=== PATIENT | male | born 1980 ===

== ENCOUNTER 2017-03-12 08:45 | Emergency (ER) | payer SELFPAY ==
[2017-03-12 09:03] VITALS: BMI 31.8
[2017-03-12 09:07] VITALS: BP 122/72; PULSE 75; RESP 16; TEMP 97; O2SAT 99
[2017-03-12 09:45] LABS: BASO % 0.3 % (0.0-2.0); EOS # 0.2 K/uL (0.0-0.7); EOS % 2.8 % (0.0-4.0); HEMATOCRIT 42.6 % (35.0-51.0); LYMPH # 1.9 K/uL (1.0-4.3); LYMPH % 36.3 % (20.0-40.0); MEAN CORPUSCULAR HEMOGLOBIN 29.9 pg (27.0-31.0); MEAN PLATELET VOLUME 8.5 fl (7.2-11.7); MONO # 0.5 K/uL (0.0-0.8); MONO % 9.6 % (0.0-10.0); NEUT # 2.7 K/uL (1.8-7.0); NRBC % 0.1 % (0.0-0.0); RED CELL DISTRIBUTION WIDTH 13.2 % (11.5-14.5); WHITE BLOOD COUNT 5.4 K/uL (4.8-10.8)
[2017-03-12 09:55] LABS: ALB/GLOB RATIO 1.6 (1.0-2.1); ALKALINE PHOSPHATASE 60 U/L (38-126); ALT/SGPT 43 U/L (21-72); AST/SGOT 29 U/L (17-59); BILIRUBIN,TOTAL 0.7 mg/dl (0.2-1.3); BLOOD UREA NITROGEN 10 mg/dl (9-20); CALCIUM 9.2 mg/dL (8.4-10.2); CARBON DIOXIDE 26 mmol/L (22-30); CHLORIDE 109 mmol/L (98-107); GFR AFRICAN-AMERICAN > 60; GLUCOSE,RANDOM 102 mg/dL (75-110); LIPASE 34 U/L (23-300); POTASSIUM 4.3 MMOL/L (3.6-5.0); SODIUM 144 mmol/l (132-148)
--- NOTE | 2017-03-12 11:30 | US ---
HISTORY: RUQ pain COMPARISON: None available. TECHNIQUE: Sonographic evaluation of the abdomen. FINDINGS: Examination limited by bowel gas. LIVER: Measures 14.9 cm in sagittal dimension. The left hepatic lobe is obscured by bowel gas. Echogenic liver may be seen in setting of hepatic parenchymal disease or fatty infiltration. Probable focal fatty sparing adjacent to the gallbladder spanning approximately 1.5 x 1.7 x 1.4 cm. The main portal vein appears patent with normal directional flow. No intrahepatic bile duct dilatation. GALLBLADDER: No gallstones. No gallbladder wall thickening. Negative sonographic Alonso's sign as assessed by the licensing manager. COMMON BILE DUCT: Measures 3 mm. PANCREAS: Not well visualized. RIGHT KIDNEY: Measures 11.0 x 5.7 x 4.9cm. No obstructing calculus or hydronephrosis identified. LEFT KIDNEY: Measures 12.0 x 5.3 x 6.0cm. No obstructing calculus or hydronephrosis identified. SPLEEN: Measures approximately 10.1 cm. AORTA: Limited views appear grossly unremarkable. IVC: Not well-visualized. OTHER FINDINGS: None. IMPRESSION: Limited study. Echogenic liver may be seen in setting of hepatic parenchymal disease or fatty infiltration. Probable focal fatty sparing adjacent to the gallbladder spanning approximately 1.5 x 1.7 x 1.4 cm.
[2017-03-12] MEDS ORDERED: Sodium Chloride 0.9% 1,000 ML IV STA (11:43)
--- NOTE | 2017-03-12 13:51 | ED PDOC ---
HPI: Abdomen Time Seen by Provider: 03/12/17 08:59 Chief Complaint (Nursing): Abdominal Pain Chief Complaint (Provider): Abdominal Pain History Per: Barrel Burner (#[id number] Yuan) History/Exam Limitations: language barrier Onset/Duration Of Symptoms: Days (x3-4 weeks) Current Symptoms Are (Timing): Still Present Additional Complaint(s): Lázaro Shanks is a 36 year old male who presents to the emergency department with a complaint of intermittent "burning and occasionally sharp" upper abdominal pain radiating to chest ongoing for 3-4 weeks. Denied vomiting, diarrhea, cough or shortness of breath. PMD: none provided Past Medical History Reviewed: Historical Data, Nursing Documentation, Vital Signs Vital Signs: Last Vital Signs Temp 97.0 F L 03/12/17 09:03 Pulse 75 03/12/17 09:03 Resp 16 03/12/17 09:03 BP 122/72 03/12/17 09:03 Pulse Ox 99 03/12/17 14:30 - Medical History PMH: No Chronic Diseases - Surgical History Surgical History: No Surg Hx - Family History Family History: States: Unknown Family Hx - Social History Current smoker - smoking cessation education provided: No Ex-Smoker (has not smoked in the last 12 months): No Alcohol: Occasional Drugs: Denies - Home Medications Home Medications: Ambulatory Orders Medication Instructions Recorded Ranitidine HCl [Zantac] 150 mg PO BID #20 tablet 03/12/17 - Allergies Allergies/Adverse Reactions: Allergies Allergy/AdvReac Type Severity Reaction Status Date / Time No Known Allergies Allergy Verified 05/16/16 17:45 Review of Systems ROS Statement: Except As Marked, All Systems Reviewed And Found Negative Constitutional: Negative for: Fever, Chills Cardiovascular: Positive for: Chest Pain Respiratory: Negative for: Cough, Shortness of Breath Gastrointestinal: Positive for: Abdominal Pain (upper area). Negative for: Vomiting, Diarrhea Physical Exam - Reviewed Nursing Documentation Reviewed: Yes Vital Signs Reviewed: Yes - Physical Exam Appears: Positive for: Well, Non-toxic, No Acute Distress Head Exam: Positive for: ATRAUMATIC, NORMAL INSPECTION, NORMOCEPHALIC Skin: Positive for: Normal Color Eye Exam: Positive for: Normal appearance, EOMI, PERRL. Negative for: Nystagmus ENT: Positive for: Normal ENT Inspection Neck: Positive for: Normal, Painless ROM, Supple. Negative for: Limited ROM Cardiovascular/Chest: Positive for: Regular Rate, Rhythm. Negative for: Chest Non Tender Respiratory: Positive for: Normal Breath Sounds, Accessory Muscle Use. Negative for: Decreased Breath Sounds, Crackles, Rales, Rhonchi, Wheezing, Respiratory Distress Gastrointestinal/Abdominal: Positive for: Bowel Sounds, Soft, Tenderness (mild epigastric; RUQ). Negative for: Normal Exam, Mass Back: Positive for: Normal Inspection. Negative for: L CVA Tenderness, R CVA Tenderness Extremity: Positive for: Normal ROM. Negative for: Tenderness, Pedal Edema, Calf Tenderness, Deformity Neurologic/Psych: Positive for: Alert, Oriented - Laboratory Results Result Diagrams: 03/12/17 09:30 03/12/17 09:30 - ECG O2 Sat by Pulse Oximetry: 99 (RA) Pulse Ox Interpretation: Normal Medical Decision Making Medical Decision Making: Initial Impression: Chest pain; abdominal pain Initial Plan: * EKG * CXR * CMP * Lipase * Troponin I * CBC * US ABD * Bentyl 10mg PO * Pepcid 20mg IV * Toradol 30mg IV * NS 1,000ml IV per 1,000mls/hr Time: 923 --EKG: NSR at [address] changes. Time: 1128 --US ABD FINDINGS: Examination limited by bowel gas. LIVER: Measures 14.9 cm in sagittal dimension. The left hepatic lobe is obscured by bowel gas. Echogenic liver may be seen in setting of hepatic parenchymal disease or fatty infiltration. Probable focal fatty sparing adjacent to the gallbladder spanning approximately 1.5 x 1.7 x 1.4 cm. The main portal vein appears patent with normal directional flow. No intrahepatic bile duct dilatation. GALLBLADDER: No gallstones. No gallbladder wall thickening. Negative sonographic Alonso's sign as assessed by the second watch sergeant. COMMON BILE DUCT: Measures 3 mm. PANCREAS: Not well visualized. RIGHT KIDNEY: Measures 11.0 x 5.7 x 4.9cm. No obstructing calculus or hydronephrosis identified. LEFT KIDNEY: Measures 12.0 x 5.3 x 6.0cm. No obstructing calculus or hydronephrosis identified. SPLEEN: Measures approximately 10.1 cm. AORTA: Limited views appear grossly unremarkable. IVC: Not well-visualized. OTHER FINDINGS: None. IMPRESSION: Limited study. Echogenic liver may be seen in setting of hepatic parenchymal disease or fatty infiltration. Probable focal fatty sparing adjacent to the gallbladder spanning approximately 1.5 x 1.7 x 1.4 cm. Scribe Attestation: Documented by Erinn Weinberg, acting as a scribe for Miguel Bain III, DO. Provider Scribe Attestation: All medical record entries made by the Scribe were at my direction and personally dictated by me. I have reviewed the chart and agree that the record accurately reflects my personal performance of the history, physical exam, medical decision making, and the department course for this patient. I have also personally directed, reviewed, and agree with the discharge instructions and disposition. Disposition - Clinical Impression Clinical Impression: Abdominal pain - Patient ED Disposition Is Patient to be Admitted: No Counseled Patient/Family Regarding: Studies Performed, Diagnosis - Disposition Referrals: [facility] [Outside] Robby WALTON,MD Arielle [Medical Doctor] - Disposition: Rehab Facility/Unit Condition: STABLE Additional Instructions: Return to ER for any worse or new symptoms. Prescriptions: Ranitidine HCl [Zantac] 150 mg PO BID #20 tablet Instructions: Acute Abdominal Pain (ED) Forms: [employer] (Vietnamese) Print Language: SETSWANA
--- NOTE | 2017-03-12 14:47 | RAD ---
HISTORY: CP COMPARISON: None available. TECHNIQUE: Chest, one view. FINDINGS: Examination limited by habitus. LUNGS: No focal consolidation. Please note that chest x-ray has limited sensitivity for the detection of pulmonary masses. PLEURA: No significant pleural effusion identified. No definite pneumothorax . CARDIOVASCULAR: Heart size appears within normal limits. OSSEOUS STRUCTURES: No acute osseous abnormality identified. VISUALIZED UPPER ABDOMEN: Unremarkable. OTHER FINDINGS: None. IMPRESSION: No focal consolidation, significant pleural effusion, or definite pneumothorax identified.
--- NOTE | 2017-03-13 13:26 | CARD ---
APPROVED REPORT EKG Measurement Heart [id number] SD [id number] [id number] <Conclusion> Normal sinus rhythm Normal ECG
== END 2017-03-12 14:35 | disposition home or self-care (01) ==
LOC: H.ER 08:45
DX: R10.13 Epigastric pain (principal); R07.89 Other chest pain
CPT/HCPCS: 71010; 76700; 80053; 83690; 84484; 85025; 93005; 99282; J1885; J7040

== ENCOUNTER 2018-04-02 20:27 | Emergency (ER) | payer SELFPAY ==
[2018-04-02 20:27] VITALS: BMI 31.8
[2018-04-02 20:55] VITALS: BP 132/72; PULSE 67; RESP 18; TEMP 98.4; O2SAT 100
--- NOTE | 2018-04-02 21:07 | ED PDOC ---
Lower Extremity Pain/Injury Chief Complaint (Provider): Bilateral knee pain History Per: Patient History/Exam Limitations: no limitations Onset/Duration Of Symptoms: Days (3x months. worse for the past 2x weeks.) Current Symptoms Are (Timing): Still Present Severity: Moderate Additional Complaint(s): 37 year old male presents to the ED with complaints of bilateral knee pain that started 2 years ago but has been worse over the past 3 months. Patient denies any trauma or injury. Patient reports he last took advil 2x weeks ago with no relief. He was seen at this ED in April 2016 for same complaint but never followed up. PMD: None <Jocelyne Farooq - Last Filed: 04/02/18 21:42> <Farhana German - Last Filed: 04/03/18 23:56> Time Seen by Provider: 04/02/18 21:01 Chief Complaint (Nursing): Lower Extremity Problem/Injury Supervising Attending Note - Attestation: I have personally seen and examined this patient.: No I have reviewed all pertinent clinical information, including history, physical exam and plan: Yes <Farhana German - Last Filed: 04/03/18 23:56> Past Medical History Reviewed: Historical Data, Nursing Documentation, Vital Signs Vital Signs: Last Vital Signs Temp 98.4 F 04/02/18 20:53 Pulse 67 04/02/18 20:53 Resp 18 04/02/18 20:53 BP 132/72 04/02/18 20:53 Pulse Ox 100 04/02/18 20:53 - Medical History PMH: Chronic Pain (bilateral knees) - Surgical History Surgical History: No Surg Hx - Family History Family History: States: No Known Family Hx - Living Arrangements Living Arrangements: With Family - Social History Current smoker - smoking cessation education provided: No Alcohol: Social Drugs: Denies <Jocelyne Farooq - Last Filed: 04/02/18 21:42> Vital Signs: Last Vital Signs Temp 98.4 F 04/02/18 20:53 Pulse 67 04/02/18 20:53 Resp 18 04/02/18 20:53 BP 132/72 04/02/18 20:53 Pulse Ox 100 04/02/18 21:47 <Farhana German - Last Filed: 04/03/18 23:56> - Home Medications Home Medications: Ambulatory Orders Medication Instructions Recorded Ranitidine HCl [Zantac] 150 mg PO BID #20 tablet 03/12/17 Ibuprofen [Motrin Tab] 800 mg PO Q8 PRN #30 tab 04/02/18 - Allergies Allergies/Adverse Reactions: Allergies Allergy/AdvReac Type Severity Reaction Status Date / Time No Known Allergies Allergy Verified 04/02/18 20:42 Wells Criteria for PE - Wells Criteria for Pulmonary Embolism Clinical Signs and Symptoms of DVT: No P.E is #1 Diagnosis, or Equally Likely: No Heart Rate >100: No Immobilization at least 3 days;Surgery previous 4 weeks: No Previous, objectively diagnosed PE or DVT: No Hemoptysis: No Malignancy w/treatment within 6 months, or palliative: No Total Score: 0 <Jocelyne Farooq - Last Filed: 04/02/18 21:42> Review of Systems ROS Statement: Except As Marked, All Systems Reviewed And Found Negative Musculoskeletal: Positive for: Other (bilateral knee pain, chronic) <Jocelyne Farooq - Last Filed: 04/02/18 21:42> Physical Exam - Reviewed Nursing Documentation Reviewed: Yes Vital Signs Reviewed: Yes - Physical Exam Appears: Positive for: Well, Non-toxic, No Acute Distress Head Exam: Positive for: ATRAUMATIC, NORMOCEPHALIC Skin: Positive for: Normal Color. Negative for: Rash Eye Exam: Positive for: Normal appearance Extremity: Positive for: Other (full ROM of bilateral knees with pain, no swelling or ecchymosis noted, no calf tenderness bilaterally, normal distal sensation bilateral lower extremities) Neurologic/Psych: Positive for: Alert, Oriented (3x) <Jocelyne Farooq - Last Filed: 04/02/18 21:42> - ECG O2 Sat by Pulse Oximetry: 100 (RA) Pulse Ox Interpretation: Normal - Other Rad X-ray bilateral knees X-Ray: Interpreted by Me, Viewed By Me X-Ray Interpretation: no fx, no dis, no acute finding <Jocelyne Farooq - Last Filed: 04/02/18 21:42> Medical Decision Making Medical Decision Makin:09 Initial impression: 37 year old male with bilateral knee pain. Initial plan: * motrin tab 600 mg PO * XRay bilateral knees Patient is aware of x-ray results. He was given prescription for Motrin and was referred to clinic for follow up. Scribe Attestation: Documented by Sandra Perez, acting as a scribe for Jocelyne Farooq PA-C. Provider Scribe Attestation: All medical record entries made by the Scribe were at my direction and personally dictated by me. I have reviewed the chart and agree that the record accurately reflects my personal performance of the history, physical exam, medical decision making, and the department course for this patient. I have also personally directed, reviewed, and agree with the discharge instructions and disposition. <Jocelyne Farooq - Last Filed: 04/02/18 21:42> Disposition - Patient ED Disposition Is Patient to be Admitted: No Counseled Patient/Family Regarding: Studies Performed, Diagnosis, Need For Followup, Rx Given - Disposition Disposition: Routine/Home Disposition Time: 21:43 <Jocelyne Farooq - Last Filed: 04/02/18 21:42> <Farhana German - Last Filed: 04/03/18 23:56> - Clinical Impression Clinical Impression: Bilateral knee pain - Disposition Referrals: [facility] [place] [Outside] Condition: STABLE Additional Instructions: Take prescription meds as directed as needed for pain. Follow-up with clinic for further evaluation. Prescriptions: Ibuprofen [Motrin Tab] 800 mg PO Q8 PRN #30 tab PRN Reason: Pain, Moderate (4-7) Instructions: Chronic Knee Pain Forms: [employer] (Rwandan) Print Language: WOLOF
--- NOTE | 2018-04-03 16:27 | RAD ---
Date of service: 04/02/2018 PROCEDURE: Bilateral Knee Radiographs. HISTORY: bilateral knee pain COMPARISON: None. FINDINGS: BONES: Right Knee: Normal. No fracture. Left Knee: Normal. No fracture. JOINTS: Right Knee: Normal. No osteoarthritis. Left knee: Normal. No osteoarthritis. SOFT TISSUES: Right Knee: Normal. Left Knee: Normal. JOINT EFFUSION: Right Knee: None. Left Knee: None. OTHER FINDINGS: None. IMPRESSION: No evidence of acute fracture or dislocation.
== END 2018-04-02 21:49 | disposition home or self-care (01) ==
LOC: H.ER 20:27
DX: M25.562 Pain in left knee (principal); M25.561 Pain in right knee; G89.29 Other chronic pain